=== PATIENT | female | born 1955 | race Caucasian/White ===

== ENCOUNTER 2016-11-17 12:54 | Outpatient (CLI) | payer OTHER ==
--- NOTE | 2016-11-17 13:41 | DIAGNOSTIC IMAGING REPORT ---
PROCEDURE: XR SHOULDER 2 OR MORE VW-LEFT INDICATION: INJURY OF LEFT SHOULDER,INITIAL ENCOUNTER TECHNIQUE: Three views. COMPARISON: None. FINDINGS: Osseous structures and joint spaces are normal. IMPRESSION: 1. Normal left shoulder. 2. Results were called to the office 01:45 p.m.
== END 2016-11-17 23:00 ==
LOC: XR SRH 12:54
DX: S49.92XA Unspecified injury of left shoulder and upper arm, initial encounter (principal)